=== PATIENT | male | born 1985 | race African-American/Black ===

== ENCOUNTER 2021-11-22 17:44 | Emergency (ER) | payer MEDICAID ==
[~2021-11-22] VITALS: Ht 175.3 cm; Wt 75.0 kg
[2021-11-22 17:55] VITALS: BP 137/80
== END 2021-11-22 23:56 | disposition left against medical advice (07) ==
LOC: ER 17:44
DX: Z53.21 Procedure and treatment not carried out due to patient leaving prior to being seen by health care provider (principal)